=== PATIENT | female | born 1945 | race Caucasian/White ===

== ENCOUNTER 2016-11-08 08:42 | Inpatient (IN) | payer MEDICARE, BC ==
--- NOTE | ~2016-11-08 | DS ---
Unit #: [id number] #: [id number] Patient: DIRK REZA [id number] [address] [address] [id number] MR#: [id number] NAME: DIRK REZA ROOM: 451 Age: 71 Sex: F Admission Date: 11/08/2016 : 1945 Discharge Date: 11/10/2016 Attending Physician: Atiya Gallagher M.D. Primary Care Physician: Generic Doctor Not In System DISCHARGE SUMMARY REVISED REPORT CHIEF COMPLAINT Right ankle pain. HISTORY OF PRESENT ILLNESS The patient is a 71-year-old female with end stage right ankle arthritis and response to conservative care. She has undergone successful left total ankle replacement in October 2014 and now desires right total ankle arthroplasty. She has failed conservative care. HOSPITAL COURSE The patient was taken to the operating room on the date of admission where she underwent right total ankle arthroplasty. She sustained a medial malleolar fracture intraoperatively, which is treated with a cannulated screw. She had a stable postoperative course. She remained afebrile with stable vital signs. She was seen by physical therapy and instructed on how to remain nonweightbearing on her affected side. DVT prophylaxis was achieved with Xarelto. Dressing was changed on the second postoperative day and she is discharged on postoperative day #2. FINAL DIAGNOSIS Right ankle arthritis. OPERATION PERFORMED Right total ankle arthroplasty, 11/08/2016. DISPOSITION RECOMMENDATIONS 1. The patient is discharged home to keep the dressing clean, dry and intact. She will continue ice and elevation. She will not bear weight for six weeks postoperatively. 2. Discharge medications remain the same as her home medications with the addition of Percocet 7.5 mg/325 one p.o. q.6 hours p.r.n. pain., dispense 40 and Xarelto 10 mg p.o. daily for two weeks. 3. Followup in my office in 10 to 14 days for dressing change, suture removal, and application of a Cam boot. She will still not bear weight for six weeks postoperatively. Dictated by.Imelda Gallagher M.D. RTH/ts Unit #: [id number] #: [id number] Patient: DIRK REZA TD: 11/11/2016 09:56 JOB #: [id number] DISCHARGE SUMMARY X Benja Gallagher MD DISCHARGE SUMMARY
--- NOTE | ~2016-11-08 | HP ---
Unit #: [id number] #: [id number] Patient: DIRK REZA [id number] [address] [address] [id number] MR#: [id number] NAME: DIRK REZA ROOM: Age: Sex: F Admission Date: 11/08/2016 : 1945 Attending Physician: Atiya Gallagher M.D. Primary Care Physician: Generic Doctor Not In System HISTORY AND PHYSICAL DATE OF ANTICIPATED ADMISSION/PROCEDURE November 08, 2016 CHIEF COMPLAINT Right ankle pain. HISTORY OF PRESENT ILLNESS Patient is a 71-year-old female with end-stage right ankle arthritis unresponsive to conservative care. She has undergone successful left ankle replacement in October 2014 and desires right ankle replacement. She has been treated in the past with antiinflammatory medication, corticosteroid injections, and bracing, all without predatory animal exterminator relief. Patient is now admitted for ankle replacement. PAST MEDICAL HISTORY 1. Cataracts. 2. Hypercholesterolemia. 3. Anxiety. 4. Gastroesophageal reflux disease. PAST SURGICAL HISTORY 1. Cataract surgery. 2. Foot surgery. 3. Hysterectomy. HOME MEDICATIONS 1. Bisoprolol. 2. Calcium. 3. Fluoxetine. 4. Hydrochlorothiazide. 5. Lipitor. 6. Mobic. 7. Nexium. 8. Polymyxin B ophthalmic solution. ALLERGIES None. FAMILY HISTORY Depression, hypercholesterolemia, osteoporosis, alcohol abuse, bipolar disease, and seizures. SOCIAL HISTORY The patient is a social drinker. She is a former smoker and has a five Unit #: [id number] #: [id number] Patient: DIRK REZA pack-year smoking history. REVIEW OF SYSTEMS Unremarkable. PHYSICAL EXAMINATION GENERAL: This is a well-developed, well-nourished female in no acute distress. HEENT: Pharynx is clear. NECK: Supple without masses. HEART: Regular sinus rhythm without murmurs or gallops. LUNGS: Clear. ABDOMEN: Soft and nontender without masses or organomegaly. EXTREMITIES: Evaluation of the right foot shows a normal arch. The hindfoot is in 5 degrees of varus. She is point tender over the anterolateral aspect of the ankle. Ankle dorsiflexion is zero and plantar flexion is 30. Subtalar motion is normal. Sensation is normal. Pulses are normal. DIAGNOSTIC STUDIES IMAGING: Standing x-rays of the right ankle demonstrate [id number] opposition of the tibiotalar joint with 8 degrees of tibiotalar varus. ADMITTING DIAGNOSES 1. End-stage right ankle arthritis. 2. Right ankle varus deformity. PLAN 1. The patient has failed conservative care. The risks and benefits of ankle fusion versus replacement have been discussed. She agrees to proceed with total ankle arthroplasty. 2. We will plan to perform the replacement with a Donn Talaris implant, possible Brostrom procedure, and possible lateralizing osteotomy of the calcaneus. This procedure was described in detail along with the risks of bleeding, infection, nerve damage, need for further surgery in the future, prolonged recovery time, deep venous thrombosis, pulmonary embolism, anesthetic complications, loosening of the prosthesis, infection of the prosthesis, need for multiple revisions to include fusion, wound healing problems, and prolonged recovery time. She understands the above risks and agrees to proceed. Dictated by Narendra Berry/daja TD: 11/07/2016 19:23 JOB #: [id number] Unit #: [id number] #: [id number] Patient: DIRK REZA HISTORY AND PHYSICAL X Benja Gallagher MD X HISTORY AND PHYSICAL
--- NOTE | ~2016-11-08 | OR ---
Unit #: [id number] #: [id number] Patient: DIRK REZA [id number] [facility]. [place], [place] [address] [id number] MR#: [id number] NAME: DIRK REZA ROOM: [facility] Date of Procedure: 11/08/2016 Admission Date: 11/08/2016 Surgeon: Atiya Gallagher M.D. : 1945 Attending Physician: Atiya Gallagher M.D. Primary Care Physician: Generic Doctor Not In System OPERATIVE REPORT PREOPERATIVE DIAGNOSIS Right ankle degenerative arthritis. POSTOPERATIVE DIAGNOSIS Right ankle degenerative arthritis. PROCEDURE PERFORMED Right total ankle arthroplasty (65684). PLANT SENIOR MANAGER Narendra Christopher ANESTHESIA Popliteal saphenous block and general. INDICATIONS FOR SURGERY The patient is a 71-year-old female with end-stage right ankle arthritis. She is admitted for elective total ankle arthroplasty. This procedure was described to the patient along with risks and benefits of fusion versus replacement. She elects to proceed with ankle replacement. She has failed nonoperative care to include bracing, injections, and anti-inflammatory medication. She has had a successful left total ankle arthroplasty and desires a similar procedure on her contralateral side. DESCRIPTION OF PROCEDURE The patient underwent right popliteal saphenous block. She was taken to the operating room and placed in a supine position and general anesthetic was induced. The right leg was identified as the correct operative extremity during the time-out procedure. The IV antibiotic protocol was followed. The right leg was then prepped and draped in the usual sterile fashion. The leg was exsanguinated and the thigh tourniquet inflated to 300 mmHg. A 12 cm anterior longitudinal incision was made over the ankle and subcutaneous tissue was divided. The superficial peroneal nerve was identified and preserved. The extensor retinaculum was opened. The interval between the anterior tibial and extensor hallucis longus tendons was opened. The neurovascular bundle was retracted laterally. The joint was exposed subperiosteally. The anterior distal tibial osteophyte was excised with the power osteotome. The Donn Talaris system was used for ankle replacement. The tibial alignment guide was pinned into the tibial tuberosity and aligned with the tibial shaft. It was then pinned to the distal tibia and Unit #: [id number] #: [id number] Patient: DIRK REZA 8 mm resection was set. Rotation was set and medial lateral orientation of the cutting block was also adjusted. The tibia and talus were both sized at a size 0. The #0 tibial cutting block was then applied. The three drill holes were placed medially and laterally and the tibial cut was made. The anterior half of the tibial cut bone was removed. The talar pin setting guide was then placed and the tibial guide was removed. The posterior talar cut was made with the posterior talar cutting guide. The anterior talar cutting guide was then pinned into place and the anterior chamber was made. A rongeur was used to smooth the talar cut. The posterior talar cutting guide was then pinned into place. The Hook saw was used and the lateral talar cut was made. The 0 talar trial fit appropriately. The 0 tibial trial with attached 8 mm trial poly was then placed and found to fit appropriately. Stability was excellent and there was no evidence of medial or lateral instability. The three drill holes were placed in the distal tibia and connected with the chisel and rasp. Care was taken to ensure that all tibial bone was completely removed. The wound was copiously irrigated. The medial and lateral gutters were then cleared of all osteophytic tissue with a rongeur. The final #0 talar component was impacted into place. The 8 mm thick poly was fixed to the 0 tibial component. The tibial component was then impacted into place. AP and lateral C-arm fluoroscopic views documented satisfactory component position, but there was evident that there was a transverse fracture of the medial malleolus. Therefore, under C-arm fluoroscopic control, a 4.0 cannulated Biomet screw was placed from the tip of the medial malleolus across the fracture site to internally fixate this nondisplaced fracture. Excellent fixation was achieved. Medial and lateral stability was excellent. The ankle dorsiflexed to 10 degrees dorsiflexion. There was no need for gastrocnemius recession. A 3-minute dilute Betadine wash was then applied and then after 3 minutes, the joint was lavaged with normal saline. The ankle joint capsule was closed with 2-0 Vicryl. The extensor retinaculum was closed with 2-0 Vicryl. Subcutaneous tissue was closed with 3-0 Vicryl. Skin was closed with interrupted 3-0 nylon horizontal mattress sutures. Xeroform gauze, dressing, sponges, Webril, and a posterior fiberglass splint were applied. Dictated byNarendra Medina/olamide TD: 11/08/2016 16:46 JOB #: [id number] Unit #: [id number] #: [id number] Patient: LIBIADIRK OPERATIVE REPORT X Benja Gallagher MD X PROCEDURE OPERATIVE NOTE
[~2016-11-08 08:42] MED LIST: BISOPROLOL FUMA10 MG PO; CALCIUM 600+D1 EACH PO; ESOMEPRAZOLE MA40 MG PO; FLUOXETINE HCL40 MG PO; HYDROCHLOROTHIA25 MG PO; HYDROCODONE/APA1 T16 PO; LIPITOR PO; MELOXICAM15 MG PO; OMEPRAZOLE20 M2 PO; PERCOCET 5-3251 TAB PO; WELLBUTRIN SR150 M1 PO; XARELTO10 MG PO; ZOFRAN PO
[2016-11-08 09:21] LABS: URINE APPEARANCE CLOUDY; URINE BILIRUBIN NEG (NEG); URINE BLOOD NEG (NEG); URINE COLOR YELLOW; URINE GLUCOSE NEG (NEG); URINE KETONE NEG (NEG); URINE LEUKOCYTE ESTERASE NEG (NEG); URINE NITRATE NEG (NEG); URINE PROTEIN NEG (NEG); URINE SPECIFIC GRAVITY 1.028 (1.003-1.035); URINE UROBILINOGEN 0.2 MG/DL (NEG)
[2016-11-10] MEDS ORDERED: XARELTO10 MG PO (10:42)
[2016-11-10] MEDS ORDERED: PERCOCET 7.5-31 EACH PO (10:43)
== END 2016-11-10 11:16 | disposition home or self-care (01) | DRG 470 ==
LOC: CSUR 08:42 → CPACUOF 16:00 → C4B 17:00
PROVIDERS: Orthopaedic Surgery
PROC: 0QHG04Z Insertion of Internal Fixation Device into Right Tibia, Open Approach (ICD-10-PCS; 2016-11-08)
PROC: 0SRF0JZ Replacement of Right Ankle Joint with Synthetic Substitute, Open Approach (ICD-10-PCS; principal; 2016-11-08 11:30)
DX: M19.071 Primary osteoarthritis, right ankle and foot (principal); F41.9 Anxiety disorder, unspecified; M96.69 Fracture of other bone following insertion of orthopedic implant, joint prosthesis, or bone plate; K21.9 Gastro-esophageal reflux disease without esophagitis; Z87.891 Personal history of nicotine dependence; Z98.49 Cataract extraction status, unspecified eye; M21.961 Unspecified acquired deformity of right lower leg; E78.00 Pure hypercholesterolemia, unspecified; Z90.710 Acquired absence of both cervix and uterus; Z81.8 Family history of other mental and behavioral disorders; Z82.62 Family history of osteoporosis; Z81.1 Family history of alcohol abuse and dependence; Z83.42 Family history of familial hypercholesterolemia; Y83.9 Surgical procedure, unspecified as the cause of abnormal reaction of the patient, or of later complication, without mention of misadventure at the time of the procedure
CPT/HCPCS: 81003; 84132; 97116; 97161; C1713; C1776; G8978-GP; G8979-GP; G8980-GP; J0131; J0690; J1170; J2250; J2270; J2405; J2550; J3010